=== PATIENT | female | born 1980 | race African-American/Black ===

== ENCOUNTER 2019-05-31 10:23 | Emergency (ER) | payer OTHER ==
[2019-05-31 10:35] VITALS: BP 115/84; PULSE 96; TEMP 97.8; BMI 37.2
--- NOTE | 2019-05-31 11:06 | PDOC ---
History of Present Illness - General Chief Complaint: Abscess Boil Stated Complaint: BOIL Time Seen by Provider: 05/31/19 10:44 - History of Present Illness Initial Comments: 05/31/19 11:00 CHIEF COMPLAINT: boil HISTORY OF PRESENT ILLNESS: 38-year-old female with no past medical history presents to [facility] with "boil "to R buttocks. Patient reports noticing a small bump that developed two days ago but has since progressed to become much larger and painful. Patient denies any fever, chills, N/V/D but reports persistent pain. No recent travel or sick contacts. PAST MEDICAL HISTORY: Denies past medical history FAMILY HISTORY: Denies SOCIAL HISTORY:Denies tobacco, alcohol, illicit drug use. SURGICAL HISTORY: Denies ALLERGIES: No known drug allergies REVIEW OF SYSTEMS General/Constitutional: Denies fever or chills. Denies weakness, weight change. HEENT: Denies change in vision. Denies ear pain or discharge. Denies sore throat. Cardiovascular: Denies chest pain or shortness of breath. Respiratory: Denies cough, wheezing, or hemoptysis. Gastrointestinal: Denies nausea, vomiting, diarrhea or constipation. Denies rectal bleeding. Genitourinary: Denies dysuria, frequency, or change in urination. Musculoskeletal: Denies joint or muscle swelling or pain. Denies neck or back pain. Skin: "I have a boil on my bottom." Neurologic: Denies headache, vertigo, loss of consciousness, or loss of sensation. Psychiatric: Denies depression or anxiety. PHYSICAL EXAM General Appearance: Well-appearing, appropriately dressed. No apparent distress , no intoxication. HEENT: EOMI, PERRLA, normal ENT inspection, normal voice, TMs normal, pharynx normal. No conjunctival pallor. No photophobia, scleral icterus. Neck: Supple. Trachea midline. No tenderness, rigidity, carotid bruit, stridor , lymphadenopathy, or thyromegaly. Respiratory/Chest: Lungs CTAB. No shortness of breath, chest tenderness, respiratory distress, accessory muscle use. No crackles, rales, rhonchi, stridor , wheezing, dullness Cardiovascular: RRR. S1, S2. No JVD, murmur, bradycardia, tachycardia. Vascular Pulses: Dorsalis-Pedis (R): 2+, Dorsalis-Pedis (L): 2+ Gastrointestinal/Abdominal: Normal bowel sounds. Abdomen soft, non-distended. No tenderness or rebound tenderness. No organomegaly, pulsatile mass, guarding , hernia, hepatomegaly, splenomegaly. Musculoskeletal/Extremities: Normal inspection. FROM of all extremities, normal capillary refill. Pelvis Stable. No CVA tenderness. No tenderness to extremities, pedal edema, swelling, erythema or deformity. Integumentary: Abscess to R buttock 3x2cm in size, approximately 1 cm lateral to rectum. No TTP on rectal exam, no tracking appreciated. Appropriate color, dry, warm. 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 Fully oriented, alert. Appropriate mood/affect. Motor strength 5/5. No appreciable EOM palsy, facial droop or sensory deficit. Past History - Past Medical History Allergies/Adverse Reactions: Allergies Allergy/AdvReac Type Severity Reaction Status Date / Time No Known Drug Allergies Allergy Verified 05/31/19 10:30 Home Medications: Ambulatory Orders NK [No Known Home Medication] 05/31/19 Anemia: No Asthma: No Cardiac Disorders: No COPD: No Diabetes: No GI Disorders: Yes (right upper quadrant abdominal pain) HTN: No Hypercholesterolemia: No - Surgical History Abdominal Surgery: Yes (MESH) - Immunization History Immunization Up to Date: Yes - Psycho Social/Smoking Cessation Hx Smoking Status: No Smoking History: Never smoked Have you smoked in the past 12 months: No Number of Cigarettes Smoked Daily: 0 Information on smoking cessation initiated: No Hx Alcohol Use: No Drug/Substance Use Hx: No Substance Use Type: None *Physical Exam - Vital Signs Last Vital Signs Temp Pulse Resp BP Pulse Ox 97.8 F 96 H 17 115/84 100 05/31/19 10:30 05/31/19 10:30 05/31/19 10:30 05/31/19 10:30 05/31/19 10:30 Medical Decision Making - Medical Decision Making 05/31/19 11:06 38-year-old female with no past medical history presents [facility] with "boil "to R buttocks. Note: Patient was initially triaged to [facility]. After review of the history of present illness and physical examination by Nurse Practitioner, the patient was transfered to the main ED for higher lever of care. The patient is medically stable for transfer, ED attending and charge nurse/main ED nursing staff aware. Discharge - Discharge Information Problems reviewed: Yes Clinical Impression/Diagnosis: Abscess Condition: Improved Disposition: HOME - Admission No - Follow up/Referral - Patient Discharge Instructions Patient Printed Discharge Instructions: DI for Skin Abscess Additional Instructions: You were seen for abscess. It was drained. You were given pain medication. Please follow up with your primary care doctor within the next few days. Take tylenol if you have pain. You can clean the wound with warm water and soap. Come back to the ED if you have fevers, worsening pain, or cannot pass bowel movement - Post Discharge Activity
--- NOTE | 2019-05-31 11:26 | PDOC ---
History of Present Illness - General Chief Complaint: Abscess Boil Stated Complaint: BOIL Time Seen by Provider: 05/31/19 10:44 - History of Present Illness Initial Comments: 05/31/19 11:26 38-year-old female with no past medical history presents to [facility] with "boil "to R buttocks. Patient reports noticing a small bump that developed two days ago but has since progressed to become much larger and painful. Patient denies any fever, chills, N/V/D but reports persistent pain. Abscess to R buttock 3x2cm in size, approximately 1 cm lateral to rectum. Past History - Past Medical History Allergies/Adverse Reactions: Allergies Allergy/AdvReac Type Severity Reaction Status Date / Time No Known Drug Allergies Allergy Verified 05/31/19 10:30 Home Medications: Ambulatory Orders Lansoprazole [Prevacid -] 30 mg PO DAILY #0 cap.sr.24h 10/03/12 Anemia: No Asthma: No Cardiac Disorders: No COPD: No Diabetes: No GI Disorders: Yes (right upper quadrant abdominal pain) HTN: No Hypercholesterolemia: No - Surgical History Abdominal Surgery: Yes (MESH) - Immunization History Immunization Up to Date: Yes - Psycho Social/Smoking Cessation Hx Smoking Status: No Smoking History: Never smoked Have you smoked in the past 12 months: No Number of Cigarettes Smoked Daily: 0 Information on smoking cessation initiated: No Hx Alcohol Use: No Drug/Substance Use Hx: No Substance Use Type: None *Physical Exam - Vital Signs Last Vital Signs Temp Pulse Resp BP Pulse Ox 97.8 F 96 H 17 115/84 100 05/31/19 10:30 05/31/19 10:30 05/31/19 10:30 05/31/19 10:30 05/31/19 10:30
[2019-05-31] MEDS ORDERED: LIDOCAINE 1%/EPI 1:100000 (20 ML MULTI DOSE VIAL) INF ONE (11:36)
[2019-05-31] MEDS ORDERED: ACETAMINOPHEN 500 MG TABLET (FP) PO ONE (11:36)
--- NOTE | 2019-05-31 11:40 | PDOC ---
*Physical Exam - Vital Signs Last Vital Signs Temp Pulse Resp BP Pulse Ox 97.8 F 96 H 17 115/84 100 05/31/19 10:30 05/31/19 10:30 05/31/19 10:30 05/31/19 10:30 05/31/19 10:30 Medical Decision Making - Medical Decision Making 05/31/19 11:38 38-year-old female with no past medical history presenting w 5d progressively worsening painful R buttock abscess. Procedure note: A timeout protocol was performed prior to initiating the procedure. The area was prepared and cleaned. The site was anesthetized with 5mL 1% lidocaine. A 2cm linear incision along the local skin lines was made and the purulent material expressed. The abscess was explored thoroughly and sequestered pockets were opened. Bleeding was minimal. The patient tolerated the procedure well without complications. Standard post- procedure care is explained and return precautions are given. I&D abscess. Given tylenol, DC home w PCP f/u Discharge - Discharge Information Problems reviewed: Yes Clinical Impression/Diagnosis: Abscess Condition: Improved Disposition: HOME - Admission No - Follow up/Referral - Patient Discharge Instructions Patient Printed Discharge Instructions: DI for Skin Abscess Additional Instructions: You were seen for abscess. It was drained. You were given pain medication. Please follow up with your primary care doctor within the next few days. Take tylenol if you have pain. You can clean the wound with warm water and soap. Come back to the ED if you have fevers, worsening pain, or cannot pass bowel movement - Post Discharge Activity Progress Note - Medications Home Medications: Ambulatory Orders NK [No Known Home Medication] 05/31/19
[2019-05-31] MEDS ORDERED: ACETAMINOPHEN 325 MG TABLET (FP) ONE (11:56)
[2019-05-31] MEDS ORDERED: LIDOCAINE 1%/EPI 1:100000 (20 ML MULTI DOSE VIAL) ONE (11:57)
== END 2019-05-31 12:59 | disposition home or self-care (01) ==
LOC: JERFT 10:23 → JER 10:23
PROC: 0J990ZZ Drainage of Buttock Subcutaneous Tissue and Fascia, Open Approach (ICD-10-PCS; principal; 2019-05-31)
DX: L02.31 Cutaneous abscess of buttock (principal)
CPT/HCPCS: 87070; 87186; 87205; 99283-25